=== PATIENT | male | born 1995 | race Caucasian/White ===

== ENCOUNTER 2019-04-22 10:06 | Emergency (ER) | payer MEDICAID ==
[~2019-04-22] VITALS: Ht 165.1 cm; Wt 73.5 kg
[2019-04-22 12:33] LABS: BASOPHIL % 0.2 % (0-2); PLATELET COUNT 267 x10^3mcL (130-400); RED CELL DISTRIBUTION WIDTH 13.1 % (11.5-14.5)
[2019-04-22 12:38] LABS: CALCIUM 8.6 mg/dL (8.5-10.1); CARBON DIOXIDE 28.4 mmol/L (21-32); CHLORIDE SERUM 106 mmol/L (98-107); GFR1 > 60 mL/min; GLUCOSE SERUM 95 mg/dL (74-106); POTASSIUM SERUM 3.9 mmol/L (3.5-5.1); SODIUM SERUM 142 mmol/L (136-145)
[2019-04-22 12:46] LABS: ALKALINE PHOSPHATASE 68 U/L (46-116); ALT/SGPT 20 U/L (16-63); AST/SGOT 20 U/L (15-37); BILIRUBIN TOTAL 0.64 mg/dL (0.20-1.00); TOTAL PROTEIN, SERUM 7.5 g/dL (6.4-8.2)
[2019-04-22 12:49] LABS: T3 TOTAL 0.94 ng/mL
[2019-04-22 12:56] LABS: AMPHETAMINE QUAL UR NONE DETECTED (See below)
[2019-04-22 14:03] LABS: FREE T4 0.95 ng/dL (0.76-1.46); FREE THYROXINE INDEX 2.8 ug/dL (1.4-4.5)
[2019-04-22 14:26] VITALS: BP 109/70
== END 2019-04-22 15:25 | disposition home or self-care (01) ==
LOC: ED 10:06
PROVIDERS: Emergency Medicine
DX: F41.9 Anxiety disorder, unspecified (principal); R51 Headache; R53.1 Weakness
CPT/HCPCS: 36415; 84439

== ENCOUNTER 2019-06-17 22:41 | Emergency (ER) | payer MEDICAID ==
[~2019-06-17] VITALS: Ht 167.6 cm; Wt 71.7 kg
[2019-06-18 00:20] VITALS: BP 111/64
== END 2019-06-18 00:12 | disposition home or self-care (01) ==
LOC: ED 22:41
DX: R04.0 Epistaxis (principal); R51 Headache; R42 Dizziness and giddiness; F41.9 Anxiety disorder, unspecified
CPT/HCPCS: 82962

== ENCOUNTER 2020-01-14 18:55 | Emergency (ER) | payer OTHER, SELFPAY ==
[~2020-01-14] VITALS: Ht 165.1 cm; Wt 74.8 kg
[2020-01-14 18:56] VITALS: Ht 165.1 cm; Wt 74.8 kg
[2020-01-14 20:24] LABS: BASOPHIL % 0.2 % (0-2); PLATELET COUNT 223 x10^3mcL (130-400)
[2020-01-14 20:39] LABS: CALCIUM 8.4 mg/dL (8.5-10.1); CHLORIDE SERUM 103 mmol/L (98-107); CREATININE SERUM 0.9 mg/dL (0.7-1.3); GFR1 > 60 mL/min; GLUCOSE SERUM 107 mg/dL (74-106); POTASSIUM SERUM 3.3 mmol/L (3.5-5.1); SODIUM SERUM 139 mmol/L (136-145)
[2020-01-14 20:44] LABS: ALBUMIN 3.5 g/dL (3.4-5.0); ALKALINE PHOSPHATASE 104 U/L (46-116); ALT/SGPT 205 U/L (16-63); AST/SGOT 171 U/L (15-37); BILIRUBIN TOTAL 0.4 mg/dL (0.20-1.00); C REACTIVE PROTEIN 6.6 mg/dL (<=0.9); LACTIC DEHYDROGENASE (LDH) 313 U/L (100-190); TOTAL PROTEIN, SERUM 7.4 g/dL (6.4-8.2)
[2020-01-14 21:01] LABS: microscopic required? NO
[2020-01-14 21:07] LABS: urine erythrocyte NEGATIVE (NEGATIVE)
[2020-01-14 21:48] VITALS: BP 113/73
== END 2020-01-14 21:48 | disposition home or self-care (01) ==
LOC: ED 18:55
PROVIDERS: Specialist
DX: R50.9 Fever, unspecified (principal); R07.89 Other chest pain; R19.7 Diarrhea, unspecified; Z20.828 Contact with and (suspected) exposure to other viral communicable diseases
CPT/HCPCS: 36415; 36600; 83880; 85378; 87804; Q0092; U0003-CS

== ENCOUNTER 2020-01-16 07:17 | Emergency (ER) | payer OTHER, SELFPAY ==
[~2020-01-16] VITALS: Ht 167.6 cm; Wt 74.8 kg
[2020-01-16 07:53] VITALS: Ht 167.6 cm; Wt 74.8 kg
[2020-01-16 09:50] LABS: BASOPHIL % 0.1 % (0-2); PLATELET COUNT 284 x10^3mcL (130-400); RED CELL DISTRIBUTION WIDTH 13.1 % (11.5-14.5)
[2020-01-16 10:01] LABS: CALCIUM 8.3 mg/dL (8.5-10.1); CARBON DIOXIDE 21.1 mmol/L (21-32); CHLORIDE SERUM 105 mmol/L (98-107); CREATININE SERUM 0.9 mg/dL (0.7-1.3); GFR1 > 60 mL/min; GLUCOSE SERUM 102 mg/dL (74-106); POTASSIUM SERUM 3.7 mmol/L (3.5-5.1); SODIUM SERUM 139 mmol/L (136-145)
[2020-01-16 10:14] LABS: ALKALINE PHOSPHATASE 114 U/L (46-116); ALT/SGPT 268 U/L (16-63); AST/SGOT 196 U/L (15-37); BILIRUBIN TOTAL 0.3 mg/dL (0.20-1.00); LACTIC DEHYDROGENASE (LDH) 374 U/L (100-190); TOTAL PROTEIN, SERUM 7.8 g/dL (6.4-8.2)
[2020-01-16 10:22] LABS: ALBUMIN 3.3 g/dL (3.4-5.0); C REACTIVE PROTEIN 16.2 mg/dL (<=0.9)
[2020-01-16 12:00] LABS: microscopic required? YES; urine erythrocyte NEGATIVE (NEGATIVE)
[2020-01-16 13:24] VITALS: BP 123/71
== END 2020-01-16 13:24 | disposition home or self-care (01) ==
LOC: ED 07:17
PROVIDERS: Emergency Medicine
DX: R09.02 Hypoxemia (principal); R50.9 Fever, unspecified; R06.02 Shortness of breath; M79.10 Myalgia, unspecified site; R05 Cough; Z03.818 Encounter for observation for suspected exposure to other biological agents ruled out
CPT/HCPCS: 36600; 83880; 85378; 87804; Q0092; U0003-CS